=== PATIENT | female | born 1940 | race Caucasian/White ===

== ENCOUNTER 2022-10-11 11:50 | Inpatient (IN) ==
[2022-10-11 14:11] LABS: Basophils # (auto) 0.03 K/uL (0-0.2); Basophils % (auto) 0.5 %; Eosinophils # (auto) 0.13 K/uL (0-0.50); Eosinophils % (auto) 2.3 %; Hematocrit (blood only) 26.6 % (37.0-47.0); Hemoglobin 7.9 g/dl (12.0-16.0); Immature Granulocytes # (auto) 0.04 K/uL (0.01-0.20); Immature Granulocytes % (auto) 0.7 %; Lymphocytes # (auto) 1.77 K/uL (1.2-3.4); Lymphocytes % (auto) 31.7 %; Mean Corpuscular Hemoglobin 27.1 pg (25.0-34.0); Mean Corpuscular Hgb Conc 29.7 g/dL (32.0-36.0); Mean Corpuscular Volume 91.4 fL (80.0-100.0); Mean Platelet Volume 9.8 fL (9.4-12.4); Monocytes # (auto) 0.39 K/uL (0.11-0.59); Neutrophils # (auto) 3.23 K/uL (1.40-6.50); Neutrophils % (auto) 57.8 %; Platelet Count 249 K/uL (130-400); RDW Coefficient of Variation 15.5 % (11.5-14.5); RDW Standard Deviation 51.4 fL (36.4-46.3); Red Blood Count 2.91 M/uL (4.20-5.40); White Blood Count 5.59 K/ul (4.8-10.8)
[2022-10-11 14:18] LABS: INR 1.1 (0.9-1.1); Partial Thromboplastin Time 28.8 Seconds (21.0-31.0); Prothrombin Time 11.8 Seconds (9.0-12.0)
[2022-10-11 14:28] LABS: Anion Gap 5 (3-11); Blood Urea Nitrogen 33 mg/dl (6-23); Calcium 9.8 mg/dl (8.6-10.3); Carbon Dioxide 22 mmol/L (21-32); Chloride 111 mmol/L (98-107); Est GFR (Non-African American) 21.6 ml/min; Glucose 89 mg/dl (70-99(Fasting)); Sodium 138 mmol/L (136-145)
[2022-10-11 14:32] LABS: RBC Morphology Unremarkable
--- NOTE | 2022-10-11 15:05 | Emergency Department Note ---
History of Present Illness General Chief complaint: Hematuria Stated complaint: BLEEDING FROM CATHEDER, POST SURG. Time Seen by Provider: 10/11/22 12:16 History of Present Illness Provider complaint: Hematuria Onset (ago): week(s) 1 Maximum Pain Intensity: 3 82-year-old female on Xarelto presents emergency department for hematuria patient reports that she is a patient of Dr. Chavez urology. Patient reports that over the last week she has been having increasing hematuria and flank pain on the left. She reports no fevers. No nausea or vomiting. Patient is on Xarelto. Patient states she has been passing clots to her Crowell catheter. Home Medications Medication Instructions Recorded Confirmed Type L.acidophil-L.casei-B.bifid-B.longum-FOS 1 cap PO HS 05/27/22 10/11/22 History 2 billion cell-50 mg capsule (Probiotic Blend) albuterol sulfate 90 mcg/actuation 2 puff inhalation Q6H PRN Cough 05/27/22 10/11/22 History aerosol inhaler atenolol 50 mg tablet 50 mg PO QAM 05/27/22 10/11/22 History cholecalciferol (vitamin D3) 125 125 mcg PO QAM 05/27/22 10/11/22 History mcg (5,000 unit) tablet (Vitamin D3) cyanocobalamin (vitamin B-12) 1,000 mcg PO QAM 05/27/22 10/11/22 History 1,000 mcg tablet (Vitamin B-12) levothyroxine 88 mcg tablet 88 mcg PO QAM 05/27/22 10/11/22 History rivaroxaban 15 mg tablet (Xarelto) 15 mg PO QPM 05/27/22 10/11/22 History zolpidem 10 mg tablet (Ambien) 10 mg PO QPM 05/27/22 10/11/22 History acetaminophen 500 mg tablet 1,000 mg PO Q6H PRN Pain 07/15/22 10/11/22 History calcitriol 0.5 mcg capsule 0.5 mcg PO DAILY 09/16/22 10/11/22 History phenazopyridine 200 mg tablet 200 mg PO Q8H PRN pain #10 tabs 10/04/22 10/11/22 Rx (Pyridium) phenazopyridine 95 mg tablet 95 mg PO TID PRN pain 10/04/22 10/11/22 History tamsulosin 0.4 mg capsule 0.4 mg PO HS #30 caps 10/04/22 10/11/22 Rx Allergies Allergy/AdvReac Type Severity Reaction Status Date / Time Sulfa (Sulfonamide Allergy Mild Rash Verified 10/11/22 16:29 Antibiotics) Past Med/Surg History Medical History CKD (chronic kidney disease) Frequent UTI History of blood transfusion History of COVID-19 x3--last diagnosed 04/20/22 via HOME test-resolved History of DVT (deep vein thrombosis) happened just over 1 yr ago--after traveling to [place] (driving)--on xarelto daily History of kidney stones Hypertension Hypothyroidism Nephrolithiasis Obesity On anticoagulant therapy xarelto daily Rheumatoid arthritis methotrexate recently stopped taking Surgical History History of appendectomy History of arthroscopy of left knee History of bilateral cataract extraction History of carpal tunnel release of both wrists History of cholecystectomy History of colonoscopy History of cystoscopy 09/02/22 [facility] History of dilatation and curettage History of gastric bypass History of hysterectomy History of lithotripsy History of oophorectomy x2 History of thyroidectomy due to goiter History of tooth extraction History of total bilateral knee replacement (TKR) Nausea and vomiting after administration of anesthetic agent S/P cystoscopy with ureteral stent placement Family History Brother Bilateral kidney stones Other No family history of adverse response to anesthesia Social History Smoking Status: Never smoker Second Hand Exposure: No; Do You Dip or Chew Tobacco: No; Hx Alcohol Use: Yes Alcohol type: beer Hx Substance Use: No Preferred Language: Greek Communication Ability: Effective Visual Impairment: No Limitations Futures Trader Required: No Beliefs That Will Affect Care: None marital status: / Current Living Situation: Alone Current Living Situation Comment: lives in an apartment building "feels very safe" current occupational status: retired Feels Safe at Home: Yes Assistive Devices: Cane and Glasses Physical Exam Vital Signs Vital Signs - 24 hr 10/11/22 12:09 10/11/22 13:27 10/11/22 14:45 Temperature 36.5 C Temperature Source Temporal Artery Scan Pulse Rate 53 L 49 L Pulse Rate [Right Finger] 49 L Pulse Rhythm Regular Respiratory Rate 20 16 Respiratory Effort / Characteristics Non-Labored Non-Labored Respiratory Depth Normal Normal Blood Pressure 160/72 H Blood Pressure [Left Arm] 147/65 H Blood Pressure Mean 101 Blood Pressure Mean [Left Arm] 92 Pulse Oximetry 97 97 Oxygen Delivery Method Room Air Room Air Sepsis Recent Fever Within 48 Hours No Sepsis New/Unexplained Change in Mental Status No Sepsis Action Taken by Nursing No Action Required 10/11/22 14:45 10/11/22 16:00 10/11/22 17:52 Temperature Temperature Source Pulse Rate 68 53 L Pulse Rate [Right Finger] 50 L Pulse Rhythm Respiratory Rate 20 Respiratory Effort / Characteristics Non-Labored Respiratory Depth Normal Blood Pressure Blood Pressure [Left Arm] 152/65 H Blood Pressure Mean Blood Pressure Mean [Left Arm] 94 Pulse Oximetry 98 98 Oxygen Delivery Method Room Air Room Air Sepsis Recent Fever Within 48 Hours Sepsis New/Unexplained Change in Mental Status Sepsis Action Taken by Nursing 10/11/22 17:08 10/11/22 18:00 10/11/22 19:01 Temperature Temperature Source Pulse Rate Pulse Rate [Right Finger] 52 L 54 L 52 L Pulse Rhythm Respiratory Rate 20 20 20 Respiratory Effort / Characteristics Non-Labored Non-Labored Non-Labored Respiratory Depth Normal Normal Normal Blood Pressure Blood Pressure [Left Arm] 152/65 H 147/82 H 159/70 H Blood Pressure Mean Blood Pressure Mean [Left Arm] 94 103 99 Pulse Oximetry 97 97 96 Oxygen Delivery Method Room Air Room Air Room Air Sepsis Recent Fever Within 48 Hours Sepsis New/Unexplained Change in Mental Status Sepsis Action Taken by Nursing Physical Exam GENERAL: She is oriented to person, place, and time. She appears well-developed and well-nourished. She does not appear distressed. HENT: Exam performed. -Head: Normocephalic and atraumatic. -Right Ear: External ear normal. No mastoid erythema -Left Ear: External ear normal. No mastoid erythema -Mouth/Throat: The oropharynx is clear and moist. No trismus in the jaw. No dental abscesses or uvula swelling. No oropharyngeal exudate or tonsillar abscesses. EYES: Conjunctivae and EOM are normal.Right eye exhibits no discharge. Left eye exhibits no discharge. No scleral icterus. NECK: Normal range of motion. Neck supple. No JVD present. No tracheal deviation and normal range of motion present. CV: Normal rate, regular rhythm, normal heart sounds and intact distal pulses. There is no peripheral edema. Palpable radial pulses bue. PULM/CHEST: Effort normal and breath sounds normal. No respiratory distress. No stridor. She has no wheezes. She has no rales. -Chest Wall: She exhibits no tenderness. ABD: The abdomen is soft. Bowel sounds are normal. She has no distension. No mass is present. There is no tenderness. There is no rebound, no guarding, no Rivas's sign and no tenderness at McBurney's point. Rovsig negative MUSC/SKEL: Normal range of motion. There is no peripheral edema, tenderness or deformity. NEURO: Motor and sensation grossly intact. SKIN: Skin is warm and dry. She is not diaphoretic. PSYCH: She has a normal mood and affect. Behavior is normal. Judgment and thought content normal. Course Course 1216: The patient was evaluated in room C6. A complete history and physical exam was performed Cardiac monitoring: An order was placed for continuous cardiac monitoring. The monitor shows a rate of 70 with sinus rhythm interpreted by co 1256: Spoke with urology Norma Robert on-call with Dr. Chavez. She asked that a CT of the abdomen pelvis be ordered for the patient and they will come down to evaluate the patient. 1600: Received a message from Lisa Robert NP for Dr. Chavez who recommends admitting to medicine and to hold anticoagulants. [facility] [address] [facility] hospitalist team Dr. Hardwick will be made aware. Medical Decision Making Medical Records Attestation: I reviewed the patient's medical records. External medical records reviewed. Patient had a cystoscopy with stone basket extraction and placement of a left-sided catheter as well as a right ureter out nephroscopy with laser destruction of the stone and the laser ablation and a stent exchange done on October 04, 2022. Laboratory Data Attestation: I reviewed the patient's lab results. 10/11/22 13:15 10/11/22 13:15 Lab Results 10/11/22 10/11/22 10/11/22 Range/Units 13:15 13:15 13:15 WBC 5.59 (4.8-10.8) K/ul RBC 2.91 L (4.20-5.40) M/uL Hgb 7.9 L (12.0-16.0) g/dl Hct 26.6 L (37.0-47.0) % MCV 91.4 (80.0-100.0) fL MCH 27.1 (25.0-34.0) pg MCHC 29.7 L (32.0-36.0) g/dL RDW Std Deviation 51.4 H (36.4-46.3) fL RDW Coeff of Suzanna 15.5 H (11.5-14.5) % Plt Count 249 (130-400) K/uL MPV 9.8 (9.4-12.4) fL Immature Gran % (Auto) 0.7 % Neut % (Auto) 57.8 % Lymph % (Auto) 31.7 % Kingman % (Auto) 7.0 % Eos % (Auto) 2.3 % Baso % (Auto) 0.5 % Neut # (Auto) 3.23 (1.40-6.50) K/uL Lymph # (Auto) 1.77 (1.2-3.4) K/uL Kingman # (Auto) 0.39 (0.11-0.59) K/uL Eos # (Auto) 0.13 (0-0.50) K/uL Baso # (Auto) 0.03 (0-0.2) K/uL Immature Gran # (Auto) 0.04 (0.01-0.20) K/uL RBC Morphology Unremarkable PT 11.8 (9.0-12.0) Seconds INR 1.1 (0.9-1.1) APTT 28.8 (21.0-31.0) Seconds PTT Ratio 1.0 Sodium 138 (136-145) mmol/L Potassium 5.0 (3.5-5.1) mmol/L Chloride 111 H (98-107) mmol/L Carbon Dioxide 22 (21-32) mmol/L Anion Gap 5 (3-11) BUN 33 H (6-23) mg/dl Creatinine 2.06 H (0.6-1.2) mg/dl Est Cr Clr Drug Dosing Not Reportable Est GFR ( Amer) 25.0 ml/min Est GFR (Non-Af Amer) 21.6 ml/min BUN/Creatinine Ratio 16.0 (10-20) Glucose 89 (70-99(Fasting)) mg/dl Calcium 9.8 (8.6-10.3) mg/dl Imaging Data Radiologist's Impression: Abdomen/Pelvis CT 10/11/22 12:[address] WITHOUT CONTRAST CT DOSE: 1547.28 mGy.cm HISTORY: Acute hematuria heaturia TECHNIQUE: Multiaxial CT images of the abdomen and pelvis were performed without contrast. A dose lowering technique was utilized adhering to the principles of ALARA. COMPARISON STUDY: 09/16/2022 FINDINGS: Cardiomegaly with suggested anemia. The lung bases. No free air. The unenhanced spleen is unremarkable. Cholecystectomy. There are a few probable dropped stones again noted adjacent to the right hepatic lobe. The liver is within normal limits. Stable small bilateral adrenal gland nodules measuring up to 1.2 cm on the left. Unchanged 1.4 cm soft tissue attenuating focus with central calcification in the pancreas on image 86. No pancreatic ductal dilation. Cortical thinning with areas of parenchymal scarring within the bilateral kidneys. Atrophic right kidney. Bilateral perinephric stranding. Mild left-sided hydroureteronephrosis with satisfactory positioning of a left ureteral stent. No left-sided urolithiasis identified.r layering stone fragments in the right kidney measure up to 1.7 cm within the interpolar distribution. Additional stone fragments within the right renal pelvis and ureteropelvic junction are similar to prior. 3.9 cm cyst of the superior pole right kidney with adjacent calcification/hyperdensities along its medial margin. Right ureteral stent is in place. A cluster of tiny stone fragments are noted within the intrapelvic portion of the right ureter on image 187. Mild right-sided hydronephrosis. Decompressed urinary bladder with Crowell catheter. Hysterectomy. Atherosclerosis of the aorta without aneurysm. Tiny hiatal hernia. Postoperative changes of the stomach. Nonspecific circumferential wall thickening of the anorectal junction. Unremarkable soft tissues. No acute fracture. Unchanged left mid sacral sclerotic focus. IMPRESSION: 1. Satisfactory positioning of the ureteral stents with mild bilateral hydroureteronephrosis. 2. Numerous tiny stone fragments are again noted within the right renal pelvis and right kidney with additional tiny stone fragments present within the mid to distal right ureter. 3. No left-sided ureteral calculi are identified. 4. Additional findings as above. ACT 112: Negative or not required by law. The above report was generated using voice recognition software. It may contain grammatical, syntax or spelling errors. Electronically signed by: Jason Bills M.D. 10/11/2022 3:08 PM [facility] Narrative 1216: The patient was evaluated in room C6. A complete history and physical exam was performed Cardiac monitoring: An order was placed for continuous cardiac monitoring. The monitor shows a rate of 70 with sinus rhythm interpreted by co 1256: Spoke with urology Norma Robert on-call with Dr. Chavez. She asked that a CT of the abdomen pelvis be ordered for the patient and they will come down to evaluate the patient. 1600: Received a message from Lisa Robert NP for Dr. Chavez who recommends admitting to medicine and to hold anticoagulants. [facility] hospitalist team Dr. Hardwick will be made aware. Impression & Plan Hematuria Discharge Plan Visit Data Chief Complaint: Hematuria Stated Complaint: BLEEDING FROM CATHEDER, POST SURG. ED Provider: Rd Marte Discharge Problem: Hematuria Patient Disposition: Admitted As Inpatient Forms Stand Alone Forms: My [facility] Prescriptions Prescriptions: No Action calcitriol 0.5 mcg capsule 0.5 mcg PO DAILY phenazopyridine 95 mg Tablet 95 mg PO TID PRN (Reason: pain) phenazopyridine [Pyridium] 200 mg tablet 200 mg PO Q8H PRN (Reason: pain) Qty: 10 0RF tamsulosin 0.4 mg capsule 0.4 mg PO HS Qty: 30 0RF cyanocobalamin (vitamin B-12) [Vitamin B-12] 1,000 mcg Tablet 1,000 mcg PO QAM levothyroxine 88 mcg Tablet 88 mcg PO QAM zolpidem [Ambien] 10 mg Tablet 10 mg PO QPM atenolol 50 mg Tablet 50 mg PO QAM Xarelto 15 mg Tablet 15 mg PO QPM Rx Instructions: must administer with evening meal cholecalciferol (vitamin D3) [Vitamin D3] 125 mcg (5,000 unit) Tablet 125 mcg PO QAM Probiotic Blend 2 billion cell-50 mg Capsule 1 cap PO HS Rx Instructions: give with meal/snack albuterol sulfate 90 mcg/actuation Hfa Aerosol Inhaler 2 puff INHALATION Q6H PRN (Reason: Cough) acetaminophen 500 mg Tablet 1,000 mg PO Q6H PRN (Reason: Pain) Referrals Referrals: Luly Smith PA-C [Primary Care Provider] -
--- NOTE | 2022-10-11 15:10 | CT Scan Report ---
ABDOMEN AND PELVIS CT WITHOUT CONTRAST CT DOSE: 1547.28 mGy.cm HISTORY: Acute hematuria heaturia TECHNIQUE: Multiaxial CT images of the abdomen and pelvis were performed without contrast. A dose lo wering technique was utilized adhering to the principles of ALARA. COMPARISON STUDY: 09/16/2022 FINDINGS: Cardiomegaly with suggested anemia. The lung bases. No free air. The unenhanced spleen is u nremarkable. Cholecystectomy. There are a few probable dropped stones again noted adjacent to the rig ht hepatic lobe. The liver is within normal limits. Stable small bilateral adrenal gland nodules kirby uring up to 1.2 cm on the left. Unchanged 1.4 cm soft tissue attenuating focus with central calcifica tion in the pancreas on image 86. No pancreatic ductal dilation. Cortical thinning with areas of parenchymal scarring within the bilateral kidneys. Atrophic right kid kisha. Bilateral perinephric stranding. Mild left-sided hydroureteronephrosis with satisfactory positio samaria of a left ureteral stent. No left-sided urolithiasis identified.r layering stone fragments in th e right kidney measure up to 1.7 cm within the interpolar distribution. Additional stone fragments wi thin the right renal pelvis and ureteropelvic junction are similar to prior. 3.9 cm cyst of the super ior pole right kidney with adjacent calcification/hyperdensities along its medial margin. Right urete ral stent is in place. A cluster of tiny stone fragments are noted within the intrapelvic portion of the right ureter on image 187. Mild right-sided hydronephrosis. Decompressed urinary bladder with Fol ey catheter. Hysterectomy. Atherosclerosis of the aorta without aneurysm. Tiny hiatal hernia. Postoperative changes of the stoma ch. Nonspecific circumferential wall thickening of the anorectal junction. Unremarkable soft tissues. No acute fracture. Unchanged left mid sacral sclerotic focus. IMPRESSION: 1. Satisfactory positioning of the ureteral stents with mild bilateral hydroureteronephrosis. 2. Numerous tiny stone fragments are again noted within the right renal pelvis and right kidney with additional tiny stone fragments present within the mid to distal right ureter. 3. No left-sided ureteral calculi are identified. 4. Additional findings as above. ACT 112: Negative or not required by law. The above report was generated using voice recognition software. It may contain grammatical, syntax o r spelling errors. Electronically signed by: Jason Bills M.D. 10/11/2022 3:08 PM
--- NOTE | 2022-10-11 15:26 | Urology Consultation ---
Date of Consultation October 11, 2022 Assessment & Plan (1) Hematuria: (2) S/P cystoscopy with ureteral stent placement: Plan 82yo/F who is s/p recent urological procedure admitted with gross hematuria. - Afebrile, hemodynamically stable. - Labs reviewed - WBC 5.59, Hemoglobin 7.9, Creatinine 2.06. - UA/culture to be collected. - Crowell intact, draining dark red urine. - CT abd pelvis reviewed - B/L stents in appropriate position with mild bilateral hydroureteronephrosis. - No plan for intervention. - Hematuria in the setting of bilateral ureteral stents and anticoagulation. - Would recommend holding anticoagulation for now if able. - Maintain Crowell catheter and continue to monitor. - Ok to hand irrigate catheter as needed for clots, retention, suprapubic pain. - Continue supportive care - Continue to trend labs. - Urology will follow Case discussed with Dr. Chavez. History of Present Illness History of Present Illness 82 year old female with a hx of large bilateral nephrolithiasis, hematuria, frequent UTI and atrophic right kidney who presented to the ED today with complaints of gross hematuria. She is s/p cystoscopy, bilateral retrograde pyelogram, left ureteroscopy, stone treatment, stent placement, and right ureteroscopy, stone treatment, stent placement on 10/04/[address] Chavez. She was seen in the ED at an outlying facility yesterday for similar complaints. Patient reports her urine was initially clear following her procedure and she did not experience hematuria until last Tuesday. She reports voiding with passage of clots which prompted her arrival to the ED in [place]. She had a Crowell catheter placed there which they irrigated with several liters of fluid. She is on Xarelto. In the ED, she was afebrile, hypertensive. Labs showing no leukocytosis, hemoglobin 7.9, creatinine 2.06 (which is around her baseline). CT abd pelvis - 1. Satisfactory positioning of the ureteral stents with mild bilateral hydroureteronephrosis. 2. Numerous tiny stone fragments are again noted within the right renal pelvis and right kidney with additional tiny stone fragments present within the mid to distal right ureter. 3. No left-sided ureteral calculi are identified. Pt examined at bedside in the ED. Awake, resting in bed on arrival. No acute distress. Son at bedside. Crowell catheter intact, draining dark red urine. No clots visualized at time of exam. She denies abdominal, flank, suprapubic pain at present. Reports some mild discomfort at catheter insertion site. Denies fevers, chills, nausea, vomiting. She reports feeling weak over the past few da ys. States she typically has some hematuria with the stents, but nothing like this. Allergies Allergy/AdvReac Type Severity Reaction Status Date / Time Sulfa (Sulfonamide Allergy Mild Rash Verified 10/11/22 16:29 Antibiotics) Home Medications Medication Instructions Recorded Confirmed Type L.acidophil-L.casei-B.bifid-B.longum-FOS 1 cap PO HS 05/27/22 10/11/22 History 2 billion cell-50 mg capsule (Probiotic Blend) albuterol sulfate 90 mcg/actuation 2 puff inhalation Q6H PRN Cough 05/27/22 10/11/22 History aerosol inhaler atenolol 50 mg tablet 50 mg PO QAM 05/27/22 10/11/22 History cholecalciferol (vitamin D3) 125 125 mcg PO QAM 05/27/22 10/11/22 History mcg (5,000 unit) tablet (Vitamin D3) cyanocobalamin (vitamin B-12) 1,000 mcg PO QAM 05/27/22 10/11/22 History 1,000 mcg tablet (Vitamin B-12) levothyroxine 88 mcg tablet 88 mcg PO QAM 05/27/22 10/11/22 History rivaroxaban 15 mg tablet (Xarelto) 15 mg PO QPM 05/27/22 10/11/22 History zolpidem 10 mg tablet (Ambien) 10 mg PO QPM 05/27/22 10/11/22 History acetaminophen 500 mg tablet 1,000 mg PO Q6H PRN Pain 07/15/22 10/11/22 History calcitriol 0.5 mcg capsule 0.5 mcg PO DAILY 09/16/22 10/11/22 History phenazopyridine 200 mg tablet 200 mg PO Q8H PRN pain #10 tabs 10/04/22 10/11/22 Rx (Pyridium) phenazopyridine 95 mg tablet 95 mg PO TID PRN pain 10/04/22 10/11/22 History tamsulosin 0.4 mg capsule 0.4 mg PO HS #30 caps 10/04/22 10/11/22 Rx Patient History Medical History CKD (chronic kidney disease) Frequent UTI History of blood transfusion History of COVID-19 x3--last diagnosed 04/20/22 via HOME test-resolved History of DVT (deep vein thrombosis) happened just over 1 yr ago--after traveling to [place] (driving)--on xarelto daily History of kidney stones Hypertension Hypothyroidism Nephrolithiasis Obesity On anticoagulant therapy xarelto daily Rheumatoid arthritis methotrexate recently stopped taking Surgical History History of appendectomy History of arthroscopy of left knee History of bilateral cataract extraction History of carpal tunnel release of both wrists History of cholecystectomy History of colonoscopy History of cystoscopy 09/02/22 [facility] History of dilatation and curettage History of gastric bypass History of hysterectomy History of lithotripsy History of oophorectomy x2 History of thyroidectomy due to goiter History of tooth extraction History of total bilateral knee replacement (TKR) Nausea and vomiting after administration of anesthetic agent S/P cystoscopy with ureteral stent placement Family History Brother Bilateral kidney stones Other No family history of adverse response to anesthesia Social History Smoking Status: Never smoker Second Hand Exposure: No; Do You Dip or Chew Tobacco: No; Hx Alcohol Use: Yes Alcohol type: beer Hx Substance Use: No Preferred Language: Korean Communication Ability: Effective Visual Impairment: No 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 Beliefs That Will Affect Care: None marital status: / Current Living Situation: Alone Current Living Situation Comment: lives in an apartment building "feels very safe" current occupational status: retired Feels Safe at Home: Yes Safety Concerns: Feels Safe At This Time Assistive Devices: Cane and Glasses Review of Systems Review of Systems: All systems reviewed & are unremarkable except as noted in HPI & below Physical Exam Constitutional: well developed and well nourished; no acute distress Respiratory: normal respiratory effort; no respiratory distress and no labored breathing Musculoskeletal: Head/Neck/Chest: normocephalic Skin: No visible rashes or lesions to exposed skin areas Neurologic: moves all extremities and awake Psychiatric: A+Ox3, euthymic affect Genitourinary: Crowell catheter intact, draining dark red urine Results & Data Vital Signs (Past 12 Hours) Vital Signs Temp Pulse Pulse Resp BP BP Pulse Ox 10/11/22 14:45 68 98 10/11/22 14:45 49 L 16 147/65 H 97 10/11/22 13:27 49 L 10/11/22 12:09 36.5 C 53 L 20 160/72 H 97 O2 Del Method 10/11/22 14:45 Room Air 10/11/22 14:45 Room Air 10/11/22 13:27 10/11/22 12:09 Room Air PG Care Time/CCT Total # of Minutes Spent Total Time Spent with Patient: Total time spent is greater than 50% in coordination of care (as documented) at patient's floor/unit and/or counseling patient: Coding Level of Care Code 93815 INT INP/OBS CARE 2/55MIN Diagnoses Hematuria R31.9 S/P cystoscopy with ureteral stent placement Z96.0
--- NOTE | 2022-10-11 16:32 | History & Physical Report ---
Date of Service October 11, 2022 Assessment & Plan (1) Hematuria: Plan: Secondary to ureteral stent placement with Xarelto Consult urology - appreciate recommendations Repeat CBC in AM, Hgb not far off her baseline of 9 No immediate need to go back on Xarelto and likely over anticoagulated on this irregardless given her renal function (2) CKD (chronic kidney disease): Plan: At baseline. Continue to monitor. (3) Hypertension: Plan: Continue atenolol with hold parameters (reduced to HR 50) however given her HR and renal function discussed with patient to consider alternatives with her PCP (4) Hypothyroidism: Plan: Continue levothyroxine Plan VTE Prophylaxis - chemical contraindicated Diet - regular Disposition - admit to med/surg Admission and Anticipated Discharge Date Admission Date: October 11, 2022 History of Present Illness Chief Complaint: Hematuria Primary Care Provider: Luly Smith PA-C Rossy French is an 82 year old female who presents to the ER with gross hematuria from her borjas catheter and passing clots. She underwent bilateral ureteral stent placement on 10/04 for nephrolithiasis. She was doing ok until 10/08 when she started having hematuria. She was off Xarelto for 2 days prior to surgery and placed back on it the day after surgery. Had previous hematuria but nothing like this. She went to [facility] ER last night and borjas catheter was placed and she was discharged from the ER with advice to come here were her urologist is if it continues. Last dose of Xarelto was yesterday morning. With regards to the anemia PCP notes she usually runs around 9. She denies any worsening dizziness over the last week, no chest pain or shortness of breath. She is fatigued but also notes she did not sleep last night due to being in the ER. Urology saw the patient in the ER and recommended hand irrigation of the borjas as needed and admit patient to medicine service. Allergies Allergy/AdvReac Type Severity Reaction Status Date / Time Sulfa (Sulfonamide Allergy Mild Rash Verified 10/11/22 16:29 Antibiotics) Home Medications Medication Instructions Recorded Confirmed Type L.acidophil-L.casei-B.bifid-B.longum-FOS 1 cap PO HS 05/27/22 10/11/22 History 2 billion cell-50 mg capsule (Probiotic Blend) albuterol sulfate 90 mcg/actuation 2 puff inhalation Q6H PRN Cough 05/27/22 10/11/22 History aerosol inhaler atenolol 50 mg tablet 50 mg PO QAM 05/27/22 10/11/22 History cholecalciferol (vitamin D3) 125 125 mcg PO QAM 05/27/22 10/11/22 History mcg (5,000 unit) tablet (Vitamin D3) cyanocobalamin (vitamin B-12) 1,000 mcg PO QAM 05/27/22 10/11/22 History 1,000 mcg tablet (Vitamin B-12) levothyroxine 88 mcg tablet 88 mcg PO QAM 05/27/22 10/11/22 History rivaroxaban 15 mg tablet (Xarelto) 15 mg PO QPM 05/27/22 10/11/22 History zolpidem 10 mg tablet (Ambien) 10 mg PO QPM 05/27/22 10/11/22 History acetaminophen 500 mg tablet 1,000 mg PO Q6H PRN Pain 07/15/22 10/11/22 History calcitriol 0.5 mcg capsule 0.5 mcg PO DAILY 09/16/22 10/11/22 History phenazopyridine 200 mg tablet 200 mg PO Q8H PRN pain #10 tabs 10/04/22 10/11/22 Rx (Pyridium) phenazopyridine 95 mg tablet 95 mg PO TID PRN pain 10/04/22 10/11/22 History tamsulosin 0.4 mg capsule 0.4 mg PO HS #30 caps 10/04/22 10/11/22 Rx Past Med/Surg History Medical History CKD (chronic kidney disease) Frequent UTI History of blood transfusion History of COVID-19 x3--last diagnosed 04/20/22 via HOME test-resolved History of DVT (deep vein thrombosis) happened just over 1 yr ago--after traveling to [place] (driving)--on xarelto daily History of kidney stones Hypertension Hypothyroidism Nephrolithiasis Obesity On anticoagulant therapy xarelto daily Rheumatoid arthritis methotrexate recently stopped taking Surgical History History of appendectomy History of arthroscopy of left knee History of bilateral cataract extraction History of carpal tunnel release of both wrists History of cholecystectomy History of colonoscopy History of cystoscopy 09/02/22 [facility] History of dilatation and curettage History of gastric bypass History of hysterectomy History of lithotripsy History of oophorectomy x2 History of thyroidectomy due to goiter History of tooth extraction History of total bilateral knee replacement (TKR) Nausea and vomiting after administration of anesthetic agent S/P cystoscopy with ureteral stent placement Family History Brother Bilateral kidney stones Other No family history of adverse response to anesthesia Social History Smoking Status: Never smoker Second Hand Exposure: No; Do You Dip or Chew Tobacco: No; Hx Alcohol Use: Yes Alcohol type: beer Hx Substance Use: No Preferred Language: Khmer Communication Ability: Effective Visual Impairment: No Limitations Director Of Dietary Required: No Beliefs That Will Affect Care: None marital status: / Current Living Situation: Alone Current Living Situation Comment: lives in an apartment building "feels very safe" current occupational status: retired Feels Safe at Home: Yes Safety Concerns: Feels Safe At This Time Assistive Devices: Cane and Glasses Review of Systems Review of Systems: All systems reviewed & are unremarkable except as noted in HPI & below Physical Exam Constitutional: WD/WN, vitals as above Respiratory: normal respiratory effort, lungs clear to auscultation Cardiovascular: RRR, no murmur, no edema Gastrointestinal (Abdomen): normal bowel sounds, soft, nontender, no hepatosplenomegaly Musculoskeletal: no cyanosis or clubbing, extremities motor strength 5/5 Skin: no rashes, warm and dry Neurologic: moves all extremities and awake; not confused Psychiatric: A+Ox3, euthymic affect Genitourinary: no CVA tenderness Results & Data Results & Data Vital Signs (Past 12 Hours) Vital Signs Temp Pulse Pulse Resp BP BP Pulse Ox 10/11/22 16:00 50 L 20 152/65 H 98 10/11/22 14:45 68 98 10/11/22 14:45 49 L 16 147/65 H 97 10/11/22 13:27 49 L 10/11/22 12:09 36.5 C 53 L 20 160/72 H 97 O2 Del Method 10/11/22 16:00 Room Air 08/21/23 14:45 Room Air 10/11/22 14:45 Room Air 10/11/22 13:27 10/11/22 12:09 Room Air Laboratory Results Abnormal lab results 10/11/22 10/11/22 Range/Units 13:15 13:15 RBC 2.91 L (4.20-5.40) M/uL Hgb 7.9 L (12.0-16.0) g/dl Hct 26.6 L (37.0-47.0) % MCHC 29.7 L (32.0-36.0) g/dL RDW Std Deviation 51.4 H (36.4-46.3) fL RDW Coeff of Suzanna 15.5 H (11.5-14.5) % Chloride 111 H (98-107) mmol/L BUN 33 H (6-23) mg/dl Creatinine 2.06 H (0.6-1.2) mg/dl Diagnostic Findings ABDOMEN AND PELVIS CT WITHOUT CONTRAST CT DOSE: 1547.28 mGy.cm HISTORY: Acute hematuria hematuria TECHNIQUE: Multiaxial CT images of the abdomen and pelvis were performed without contrast. A dose lowering technique was utilized adhering to the principles of ALARA. COMPARISON STUDY: 09/16/2022 FINDINGS: Cardiomegaly with suggested anemia. The lung bases. No free air. The unenhanced spleen is unremarkable. Cholecystectomy. There are a few probable dropped stones again noted adjacent to the right hepatic lobe. The liver is within normal limits. Stable small bilateral adrenal gland nodules measuring up to 1.2 cm on the left. Unchanged 1.4 cm soft tissue attenuating focus with central calcification in the pancreas on image 86. No pancreatic ductal dilation. Cortical thinning with areas of parenchymal scarring within the bilateral kidneys. Atrophic right kidney. Bilateral perinephric stranding. Mild left-sided hydroureteronephrosis with satisfactory positioning of a left ureteral stent. No left-sided urolithiasis identified.r layering stone fragments in the right kidney measure up to 1.7 cm within the interpolar distribution. Additional stone fragments within the right renal pelvis and ureteropelvic junction are similar to prior. 3.9 cm cyst of the superior pole right kidney with adjacent calcification/hyperdensities along its medial margin. Right ureteral stent is in place. A cluster of tiny stone fragments are noted within the intrapelvic portion of the right ureter on image 187. Mild right-sided hydronephrosis. Decompressed urinary bladder with Borjas catheter. Hysterectomy. Atherosclerosis of the aorta without aneurysm. Tiny hiatal hernia. Postoperative changes of the stomach. Nonspecific circumferential wall thickening of the anorectal junction. Unremarkable soft tissues. No acute fracture. Unchanged left mid sacral sclerotic focus. IMPRESSION: 1. Satisfactory positioning of the ureteral stents with mild bilateral hydroureteronephrosis. 2. Numerous tiny stone fragments are again noted within the right renal pelvis and right kidney with additional tiny stone fragments present within the mid to distal right ureter. 3. No left-sided ureteral calculi are identified. 4. Additional findings as above. Medications Administered ER Medications Given: None Code Status & VTE Plan Code Status Full VTE Prophylaxis Plan VTE Prophylaxis will be ordered: No PG Care Time/CCT Total # of Minutes Spent Total Time Spent with Patient: Total time spent is greater than 50% in coordination of care (as documented) at patient's floor/unit and/or counseling patient: Coding Level of Care Code 16384 INT INP/OBS CARE 2/55MIN Diagnoses Hematuria R31.9 CKD (chronic kidney disease) N18.9 Hypertension I10 Hypothyroidism E03.9
[2022-10-11] MEDS: TAMSULOSIN HCL 0.4 MG CAP PO SCH (21:10)
[2022-10-11] MEDS: ACETAMINOPHEN 500 MG TAB PO PRN (21:12)
[2022-10-11] MEDS: ZOLPIDEM TARTRATE 10 MG TAB PO SCH (22:31)
[2022-10-12] MEDS: LEVOTHYROXINE SODIUM 88 MCG TABLET PO SCH (05:27)
[2022-10-12] MEDS: ACETAMINOPHEN 500 MG TAB PO PRN (05:41)
[2022-10-12 06:32] LABS: Appearance Urine Slightly Cloudy (Clear); Color Urine Brown
[2022-10-12 06:42] LABS: Epithelial Cell Urine 0-5 /lpf (0-5); RBC Urine >30 /hpf (0-4)
[2022-10-12 06:43] LABS: Bacteria Urine 1+ (Negative)
[2022-10-12 06:45] LABS: Hematocrit (blood only) 23.4 % (37.0-47.0); Hemoglobin 7.2 g/dl (12.0-16.0); Mean Corpuscular Hemoglobin 27.9 pg (25.0-34.0); Mean Corpuscular Hgb Conc 30.8 g/dL (32.0-36.0); Mean Corpuscular Volume 90.7 fL (80.0-100.0); Mean Platelet Volume 9.7 fL (9.4-12.4); Platelet Count 232 K/uL (130-400); RDW Coefficient of Variation 15.4 % (11.5-14.5); RDW Standard Deviation 50.4 fL (36.4-46.3); Red Blood Count 2.58 M/uL (4.20-5.40); White Blood Count 5.89 K/ul (4.8-10.8)
[2022-10-12 07:10] LABS: BUN Creatinine Ratio 15.6 (10-20); Calcium 9.2 mg/dl (8.6-10.3); Creatinine Clr Calc Pharmacy 22.7 ml/min; Est GFR (African American) 24.2 ml/min; Est GFR (Non-African American) 20.8 ml/min
[2022-10-12] MEDS ORDERED: SODIUM CHLORIDE 0.9% 250 ML IV PRN (07:59)
[2022-10-12] MEDS: ATENOLOL 50 MG TABLET PO SCH (08:07)
--- NOTE | 2022-10-12 09:56 | Urology Progress Note ---
Date of Service October 12, 2022 Assessment & Plan (1) Hematuria: (2) S/P cystoscopy with ureteral stent placement: Plan 82yo/F who is s/p recent urological procedure admitted with gross hematuria. CT abdomen pelvis on arrival demonstrated bilateral ureteral stents in appropriate position with mild bilateral hydroureteronephrosis. - Hematuria in the setting of bilateral ureteral stents and anticoagulation. - Afebrile, hemodynamically stable. - Labs reviewed - WBC 5.89, creatinine 2.12, hemoglobin 7.97.2 today. Patient to receive PRBC transfusion this morning. - Urine culture pending. - Crowell intact, draining light pink/red urine. Improved from yesterday. Continue to monitor. - Ok to hand irrigate catheter as needed for clots, retention, suprapubic pain. - Continue supportive care - Continue to trend labs. - Anticoagulation on hold. - Urology will follow Admission and Anticipated Discharge Date Admission Date: October 11, 2022 Subjective Patient examined at bedside this AM. Awake, resting in bed on arrival. No acute distress. Crowell draining light pink/red urine, no clots. She did require manual irrigation x2 overnight. Denies abdominal, flank, suprapubic pain. Denies fevers, chills, nausea, vomiting. Patient to receive PRBC transfusion this morning. Review of Systems Constitutional: as per Subjective / HPI Gastrointestinal: as per Subjective / HPI Genitourinary: as per Subjective / HPI Physical Exam Constitutional: no acute distress Respiratory: no respiratory distress and no labored breathing Skin: No visible rashes or lesions to exposed skin areas Neurologic: moves all extremities and awake Psychiatric: A+Ox3, euthymic affect Genitourinary: Crowell intact, draining light pink/red urine without clot Results & Data Vital Signs (Past 12 Hours) Vital Signs Temp Pulse Resp BP Pulse Ox O2 Del Method 10/12/22 07:07 36.5 C 54 L 16 137/72 96 Room Air 10/12/22 05:28 37.0 C 61 17 133/68 95 Room Air 10/11/22 23:13 37 C 56 L 20 121/68 94 Room Air 10/11/22 22:32 56 L 17 124/54 L 97 Room Air PG Care Time/CCT Total # of Minutes Spent Total Time Spent with Patient: Total time spent is greater than 50% in coordination of care (as documented) at patient's floor/unit and/or counseling patient: Coding Level of Care Code 45034 SUB INP/OBS CARE 2/35MIN Diagnoses Hematuria R31.9 S/P cystoscopy with ureteral stent placement Z96.0
[2022-10-12] MEDS: PHENAZOPYRIDINE HCL 200 MG TAB PO PRN (16:28)
--- NOTE | 2022-10-12 16:44 | Hospitalist Progress Note ---
Date of Service October 12, 2022 Assessment & Plan (1) Hematuria: Plan: Secondary to recent bilateral ureteral stent placement with Xarelto. Urology consultation appreciated. Xarelto has been discontinued. (2) Acute blood loss anemia: Plan: Hemoglobin is down to 7.2. 2 units packed red blood cells ordered with serial labs. (3) CKD (chronic kidney disease): Plan: Stage III4. Creatinine stable at 2.1. Monitor intake and output. Serial labs (4) Hypertension: Plan: Stable. Continue atenolol (5) Hypothyroidism: Plan: Stable. Continue levothyroxine Plan Hopeful discharge back to home soon Admission and Anticipated Discharge Date Admission Date: October 11, 2022 Subjective Alert and oriented. Hemoglobin is down to 7.2. 2 units packed red blood cells ordered. The patient has given consent. Son is at the bedside. Xarelto is on hold. Urine is clearing. Appreciate urology consultation and recommendations. Review of Systems Review of Systems: Constitutional-no fever or chills ENT-no blurred vision, no double vision, no epistaxis, no sore throat Respiratory-no cough, no wheezing, no shortness of breath Cardiac-no palpitations, no chest pain, no syncope GI-no nausea, vomiting, diarrhea, melena, hematochezia -gross hematuria present on admission Musculoskeletal-no joint pain, no muscle tenderness Skin-no bruising, no rashes, no pruritus Neuro-no isolated weakness, no paresthesia, no weakness Psych-no depression, no anxiety Physical Exam Physical Exam: General-alert and oriented x3, no fevers, no chills HEENT-head atraumatic and normocephalic, pupils equal and reactive to light, extraocular muscles intact Neck-no lymphadenopathy or thyromegaly, trachea midline Chest-clear to auscultation percussion. No rales, wheezing or rhonchi Cardiac-regular rate and rhythm, normal S1 and S2 Abdomen-normal bowel sounds, nontender, no hepatosplenomegaly GUFoley catheter in place with near resolution of hematuria Extremities-no cyanosis, clubbing, or edema Neuro-cranial nerves II through XII intact, motor and sensory function within normal limits, strength symmetrical , no focal deficits Psych-normal affect, normal mood Results & Data Results & Data Vital Signs (Past 12 Hours) Vital Signs Temp Pulse Pulse Resp BP BP Pulse Ox 10/12/22 16:00 36.5 C 51 L 16 120/69 92 10/12/22 14:00 36.9 C 52 L 16 149/72 H 98 10/12/22 14:00 36.9 C 56 L 16 123/74 95 10/12/22 13:28 36.9 C 56 L 16 122/73 95 10/12/22 13:15 36.8 C 60 20 123/68 98 10/12/22 12:55 36.9 C 58 L 20 122/56 L 95 10/12/22 07:07 36.5 C 54 L 16 137/72 96 10/12/22 05:28 37.0 C 61 17 133/68 95 O2 Del Method O2 Flow Rate 10/12/22 16:00 10/12/22 14:00 10/12/22 14:00 10/12/22 13:28 10/12/22 13:15 0 10/12/22 12:55 0 10/12/22 07:07 Room Air 10/12/22 05:28 Room Air Laboratory Results 10/12/22 06:19 10/12/22 06:19 PG Care Time/CCT Total # of Minutes Spent Total Time Spent with Patient: Total time spent is greater than 50% in coordination of care (as documented) at patient's floor/unit and/or counseling patient: Coding Level of Care Code 79199 SUB INP/OBS CARE 3/50MIN Diagnoses Hematuria R31.9 Acute blood loss anemia D62 CKD (chronic kidney disease) N18.9 Hypertension I10 Hypothyroidism E03.9
[2022-10-12] MEDS: TAMSULOSIN HCL 0.4 MG CAP PO SCH (22:49)
[2022-10-12] MEDS: ZOLPIDEM TARTRATE 10 MG TAB PO SCH (22:49)
[2022-10-12 22:51] LABS: Hematocrit (blood only) 29.5 % (37.0-47.0); Hemoglobin 9.2 g/dl (12.0-16.0)
[2022-10-13] MEDS: ACETAMINOPHEN 500 MG TAB PO PRN ×3 (05:05→21:52)
[2022-10-13] MEDS: LEVOTHYROXINE SODIUM 88 MCG TABLET PO SCH (06:15)
[2022-10-13 06:52] LABS: Hematocrit (blood only) 27.4 % (37.0-47.0); Hemoglobin 8.6 g/dl (12.0-16.0); Mean Corpuscular Hemoglobin 27.6 pg (25.0-34.0); Mean Corpuscular Hgb Conc 31.4 g/dL (32.0-36.0); Mean Corpuscular Volume 87.8 fL (80.0-100.0); Mean Platelet Volume 9.6 fL (9.4-12.4); Platelet Count 218 K/uL (130-400); RDW Coefficient of Variation 16.1 % (11.5-14.5); RDW Standard Deviation 51.8 fL (36.4-46.3); Red Blood Count 3.12 M/uL (4.20-5.40); White Blood Count 6.45 K/ul (4.8-10.8)
[2022-10-13 07:17] LABS: BUN Creatinine Ratio 16.6 (10-20); Creatinine Clr Calc Pharmacy 21.1 ml/min; Potassium 4.4 mmol/L (3.5-5.1)
[2022-10-13] MEDS: ATENOLOL 50 MG TABLET PO SCH (08:01)
[2022-10-13] MEDS: DOCUSATE SODIUM 100 MG CAP PO SCH ×2 (10:08→21:53)
--- NOTE | 2022-10-13 10:12 | Urology Progress Note ---
Date of Service October 13, 2022 Assessment & Plan (1) Hematuria: (2) S/P cystoscopy with ureteral stent placement: Plan 82yo/F who is s/p recent urological procedure admitted with gross hematuria. CT abdomen pelvis on arrival demonstrated bilateral ureteral stents in appropriate position with mild bilateral hydroureteronephrosis. - Afebrile, hemodynamically stable. - Labs reviewed - WBC 6.45, creatinine 2.12-2.29 today, hemoglobin 7.2 -9.2 -8.6 today. Patient received PRBC transfusion yesterday. Continue to trend. - Urine culture pending. - Hematuria has cleared. Borjas draining orange colored urine without clot or debris. Continue to monitor. - Ok to hand irrigate catheter as needed for clots, retention, suprapubic pain. - Plan to maintain borjas catheter on discharge. Will remove next week in office. - Continue supportive care and follow culture. - Anticoagulation on hold. OK to resume from standpoint. - Plan to follow-up with urology outpatient next week (10/19) for stent and catheter removal. - Urology will follow peripherally. Please contact us with any further questions, concerns, or changes in patient status. Admission and Anticipated Discharge Date Admission Date: October 11, 2022 Subjective Patient examined at bedside this AM. Awake, sitting in bedside chair on arrival. No acute distress. Son at bedside. Borjas draining orange colored urine, no clots or debris noted. She did require manual irrigation x2 overnight. Denies abdominal, flank, suprapubic pain at present. Denies fevers, chills, nausea, vomiting. Review of Systems Constitutional: as per Subjective / HPI Gastrointestinal: as per Subjective / HPI Genitourinary: as per Subjective / HPI Physical Exam Constitutional: well developed and well nourished; no acute distress Respiratory: normal respiratory effort; no respiratory distress and no labored breathing Musculoskeletal: Head/Neck/Chest: normocephalic Neurologic: moves all extremities and awake Psychiatric: A+Ox3, euthymic affect Results & Data Vital Signs (Past 12 Hours) Vital Signs Temp Pulse Resp BP Pulse Ox O2 Del Method 10/13/22 06:54 36.8 C 51 L 16 105/60 94 Room Air PG Care Time/CCT Total # of Minutes Spent Total Time Spent with Patient: Total time spent is greater than 50% in coordination of care (as documented) at patient's floor/unit and/or counseling patient: Coding Level of Care Code 99599 SUB INP/OBS CARE 2/35MIN Diagnoses Hematuria R31.9 S/P cystoscopy with ureteral stent placement Z96.0
--- NOTE | 2022-10-13 12:54 | Hospitalist Progress Note ---
Date of Service October 13, 2022 Assessment & Plan (1) Hematuria: Plan: Secondary to recent bilateral ureteral stent placement with Xarelto. Urology consultation appreciated. Xarelto has been discontinued. (2) Acute blood loss anemia: Plan: Hemoglobin improved after blood transfusion yesterday, October 12. Hemoglobin high level was 9.2 and now 8.6. We will continue to follow. Hematuria has r esolved however. She is now off Xarelto. (3) CKD (chronic kidney disease): Plan: Stage III4. Creatinine up slightly to 2.2. Monitor intake and output. Serial labs (4) Hypertension: Plan: Stable. Continue atenolol (5) Hypothyroidism: Plan: Stable. Continue levothyroxine Plan We will discharge to home tomorrow, October 14. Will ask urology if Crowell should remain in place at the time of discharge Admission and Anticipated Discharge Date Admission Date: October 11, 2022 Subjective Alert and oriented. Son is at the bedside. Hemoglobin improved to 9.2 after 2 units packed red blood cells and 8.6 this morning. Creatinine up slightly to 2.2. Will restart Xarelto tomorrow, October 14. Will ask urology if Crowell should remain in place at the time of discharge and be removed as an outpatient in the office. Review of Systems Review of Systems: Constitutional-no fever or chills ENT-no blurred vision, no double vision, no epistaxis, no sore throat Respiratory-no cough, no wheezing, no shortness of breath Cardiac-no palpitations, no chest pain, no syncope GI-no nausea, vomiting, diarrhea, melena, hematochezia -gross hematuria present on admission Musculoskeletal-no joint pain, no muscle tenderness GUFoley catheter in place. Gross hematuria has resolved Skin-no bruising, no rashes, no pruritus Neuro-no isolated weakness, no paresthesia, no weakness Psych-no depression, no anxiety Physical Exam Physical Exam: General-alert and oriented x3, no fevers, no chills HEENT-head atraumatic and normocephalic, pupils equal and reactive to light, extraocular muscles intact Neck-no lymphadenopathy or thyromegaly, trachea midline Chest-clear to auscultation percussion. No rales, wheezing or rhonchi Cardiac-regular rate and rhythm, normal S1 and S2 Abdomen-normal bowel sounds, nontender, no hepatosplenomegaly GUFoley catheter in place with resolution of hematuria Extremities-no cyanosis, clubbing, or edema Neuro-cranial nerves II through XII intact, motor and sensory function within normal limits, strength symmetrical , no focal deficits Psych-normal affect, normal mood Results & Data Results & Data Vital Signs (Past 12 Hours) Vital Signs Temp Pulse Resp BP Pulse Ox O2 Del Method 10/13/22 06:54 36.8 C 51 L 16 105/60 94 Room Air Laboratory Results 10/13/22 06:31 10/13/22 06:31 PG Care Time/CCT Total # of Minutes Spent Total Time Spent with Patient: Total time spent is greater than 50% in coordination of care (as documented) at patient's floor/unit and/or counseling patient: Coding Level of Care Code 04926 SUB INP/OBS CARE 2/35MIN Diagnoses Hematuria R31.9 Acute blood loss anemia D62 CKD (chronic kidney disease) N18.9 Hypertension I10 Hypothyroidism E03.9
[2022-10-13] MEDS: PHENAZOPYRIDINE HCL 200 MG TAB PO PRN ×2 (13:07→21:52)
[2022-10-13] MEDS: ZOLPIDEM TARTRATE 10 MG TAB PO SCH (21:53)
[2022-10-13] MEDS: TAMSULOSIN HCL 0.4 MG CAP PO SCH (21:53)
[2022-10-14] MEDS: LEVOTHYROXINE SODIUM 88 MCG TABLET PO SCH (05:46)
[2022-10-14 06:29] LABS: Mean Corpuscular Hemoglobin 27.9 pg (25.0-34.0); Mean Corpuscular Volume 89.8 fL (80.0-100.0); Mean Platelet Volume 9.7 fL (9.4-12.4); Platelet Count 236 K/uL (130-400); RDW Coefficient of Variation 15.9 % (11.5-14.5); RDW Standard Deviation 52.2 fL (36.4-46.3); Red Blood Count 3.23 M/uL (4.20-5.40); White Blood Count 6.89 K/ul (4.8-10.8)
[2022-10-14 06:41] LABS: BUN Creatinine Ratio 17.5 (10-20); Calcium 9.3 mg/dl (8.6-10.3); Creatinine Clr Calc Pharmacy 20.1 ml/min; Est GFR (African American) 20.8 ml/min; Est GFR (Non-African American) 17.9 ml/min; Potassium 4.8 mmol/L (3.5-5.1)
[2022-10-14] MEDS: ATENOLOL 50 MG TABLET PO SCH (08:34)
[2022-10-14] MEDS: DOCUSATE SODIUM 100 MG CAP PO SCH (08:35)
[2022-10-14] MEDS: PHENAZOPYRIDINE HCL 200 MG TAB PO PRN (08:36)
--- NOTE | 2022-10-14 11:41 | Urology Progress Note ---
Date of Service October 14, 2022 Assessment & Plan (1) Hematuria: (2) S/P cystoscopy with ureteral stent placement: Plan 82yo/F who is s/p recent urological procedure admitted with gross hematuria. CT abdomen pelvis on arrival demonstrated bilateral ureteral stents in appropriate position with mild bilateral hydroureteronephrosis. - Afebrile, hemodynamically stable. - Labs reviewed - WBC 6.89, creatinine 2.29-2.40 today, hemoglobin 9. - Urine culture prelim gram positive cocci, follow culture. - Hematuria has cleared. Borjas draining orange colored urine without clot or debris. Continue to monitor. - Ok to hand irrigate catheter as needed for clots, retention, suprapubic pain. - Plan to maintain borjas catheter on discharge. Will remove next week in office. - Continue supportive care. - Anticoagulation on hold. OK to resume from standpoint. - Plan to follow-up with urology outpatient next week (10/19) for stent and catheter removal. - Urology will sign-off. Please contact us with any further questions, concerns, or changes in patient status. Admission and Anticipated Discharge Date Admission Date: October 11, 2022 Subjective Patient examined at bedside this AM. Awake, resting in bed on arrival. No acute distress. Borjas draining orange colored urine, no clots or debris noted. She does report occasional bladder spasms. Denies abdominal, flank, suprapubic pain at present. Denies fevers, chills, nausea, vomiting. Review of Systems Constitutional: as per Subjective / HPI Gastrointestinal: as per Subjective / HPI Genitourinary: as per Subjective / HPI Physical Exam Constitutional: well developed and well nourished; no acute distress Respiratory: normal respiratory effort; no respiratory distress and no labored breathing Neurologic: moves all extremities and awake Psychiatric: A+Ox3, euthymic affect Genitourinary: Borjas intact, draining orange colored urine Results & Data Vital Signs (Past 12 Hours) Vital Signs Temp Pulse Resp BP Pulse Ox O2 Del Method 10/14/22 07:00 36.5 C 47 L 18 111/69 95 Room Air PG Care Time/CCT Total # of Minutes Spent Total Time Spent with Patient: Total time spent is greater than 50% in coordination of care (as documented) at patient's floor/unit and/or counseling patient: Coding Level of Care Code 20646 SUB INP/OBS CARE 2/35MIN Diagnoses Hematuria R31.9 S/P cystoscopy with ureteral stent placement Z96.0
--- NOTE | 2022-10-14 12:10 | Discharge Summary ---
Date of Service October 14, 2022 Admission HPI Per Admitting Provider Rossy French is an 82 year old female who presents to the ER with gross hematuria from her borjas catheter and passing clots. She underwent bilateral ureteral stent placement on 10/04 for nephrolithiasis. She was doing ok until 10/08 when she started having hematuria. She was off Xarelto for 2 days prior to surgery and placed back on it the day after surgery. Had previous hematuria but nothing like this. She went to [facility] ER last night and borjas catheter was placed and she was discharged from the ER with advice to come here were her urologist is if it continues. Last dose of Xarelto was yesterday morning. With regards to the anemia PCP notes she usually runs around 9. She denies any worsening dizziness over the last week, no chest pain or shortness of breath. She is fatigued but also notes she did not sleep last night due to being in the ER. Urology saw the patient in the ER and recommended hand irrigation of the borjas as needed and admit patient to medicine service. Principal Diagnosis Gross hematuria, acute blood loss anemia Discharge Exam General-alert and oriented x3, no fevers, no chills HEENT-head atraumatic and normocephalic, pupils equal and reactive to light, extraocular muscles intact Neck-no lymphadenopathy or thyromegaly, trachea midline Chest-clear to auscultation percussion. No rales, wheezing or rhonchi Cardiac-regular rate and rhythm, normal S1 and S2 Abdomen-normal bowel sounds, nontender, no hepatosplenomegaly GUFoley catheter in place with resolution of hematuria Extremities-no cyanosis, clubbing, or edema Neuro-cranial nerves II through XII intact, motor and sensory function within normal limits, strength symmetrical , no focal deficits Psych-normal affect, normal mood Discharge Data Allergies Allergy/AdvReac Type Severity Reaction Status Date / Time Sulfa (Sulfonamide Allergy Mild Rash Verified 10/11/22 16:29 Antibiotics) Consultations 10/11/22 16:12 Consult Urology Stat ED Decision to Admit Stat Ordered Studies 10/11/22 12:56 CT abd pelvis wo con Stat Hospital Course (1) Hematuria: Secondary to recent bilateral ureteral stent placement with Xarelto. Urology consultation appreciated. Xarelto has been discontinued. Borjas catheter remains in place and the urine is actually orange-colored from the Pyridium. No evidence of hematuria (2) Acute blood loss anemia: Hemoglobin improved after blood transfusion given on October 12. Hemoglobin is stable now at 9.0. Hematuria has resolved. She is now off Xarelto. (3) CKD (chronic kidney disease): Stage III4. Stable. Monitor intake and output. Serial labs (4) Hypertension: Stable. Continue atenolol (5) Hypothyroidism: Stable. Continue levothyroxine Plan Home today, October 14, with Borjas catheter in place per urology recommendations. She will remain off of Xarelto until seen by her PCP Total Time Total Time Spent Total Time Spent (In Minutes): 45 minutes Discharge Plan Discharge Items Patient Disposition: Home - Self-Care Reason For Visit: GROSS HEMATURIA Discharge Diagnosis: Gross hematuria, acute blood loss anemia Activity: Resume your previous activity Non-emergency contact: Primary Care Provider and Urologist Call non-emergency contact if: you have any medication questions and your symptoms worsen Follow-up/Referrals: Finesse Chavez DO [Physician] - 10/19/22 10:00 am Luly Smtih PA-C [Primary Care Provider] - Diet: Regular and Heart Healthy Addtl Attending Provider Instructions: Borjas catheter will be removed in the urology office. Stop Xarelto Pending Studies at Discharge: No Stand-Alone Forms: My [facility] [employer], Smoking Cessation Medications and DC Order Prescriptions: Continued calcitriol 0.5 mcg capsule 0.5 mcg PO DAILY phenazopyridine 95 mg Tablet 95 mg PO TID PRN (Reason: pain) phenazopyridine [Pyridium] 200 mg tablet 200 mg PO Q8H PRN (Reason: pain) Qty: 10 0RF tamsulosin 0.4 mg capsule 0.4 mg PO HS Qty: 30 0RF cyanocobalamin (vitamin B-12) [Vitamin B-12] 1,000 mcg Tablet 1,000 mcg PO QAM levothyroxine 88 mcg Tablet 88 mcg PO QAM zolpidem [Ambien] 10 mg Tablet 10 mg PO QPM atenolol 50 mg Tablet 50 mg PO QAM cholecalciferol (vitamin D3) [Vitamin D3] 125 mcg (5,000 unit) Tablet 125 mcg PO QAM Probiotic Blend 2 billion cell-50 mg Capsule 1 cap PO HS Rx Instructions: give with meal/snack albuterol sulfate 90 mcg/actuation Hfa Aerosol Inhaler 2 puff INHALATION Q6H PRN (Reason: Cough) acetaminophen 500 mg Tablet 1,000 mg PO Q6H PRN (Reason: Pain) Discontinued Xarelto 15 mg Tablet 15 mg PO QPM Rx Instructions: must administer with evening meal Discharge Orders: Discharge Order (Routine); Ordered 10/14/22 Ordered By: Daryl Moy Admission Data Admit Date/Time: 10/11/22 16:52 Attending Provider: Daryl Moy Admit Provider: Tristan Hardwick Primary Care Provider: Luly Smith Other Providers: Finesse Chavez ; Tristan Hardwick Coding Level of Care Code 91095 INP/OBS DISCH >30 MIN Diagnoses Hematuria R31.9 Acute blood loss anemia D62 CKD (chronic kidney disease) N18.9 Hypertension I10 Hypothyroidism E03.9
--- NOTE | 2022-10-15 15:08 | Coding Query ---
CODING QUERY To promote full compliance with coding requirements relating to patient care, provider participation is requested in all cases of registered phlebotomist part time uncertainty. Please assist us with the question(s) below: Coding Question(s): Gross Hematuria is documented in the record. The Urology Consultation on 10/11 documents, "Hematuria in the setting of bilateral ureteral stents and anticoagulation", and the Discharge Summary documents, "Hematuria: Secondary to recent bilateral ureteral stent placement with Xarelto". Please specify below, in your clinical opinion, regarding the cause(s) of Gross Hematuria during this admission: ( ) Gross Hematuria is likely a complication of the ureteral stents ( ) Gross Hematuria is likely postprocedural bleeding - postprocedural complication of bleeding (X ) Gross Hematuria is likely due to hemorrhagic condition caused by Anticoagulation/Xarelto ( ) Gross Hematuria is likely due to Other: Please specify, and please specify if it is a complication related to procedure or ureteral stents, or not: ( ) Gross Hematuria is from Unknown likely cause Physician's Response(s): Thank you Sailaja Hartmann Principal Diagnosis: "that condition established after study, to be chiefly responsible for occasioning the admission of the patient to the hospital for care." Co-Existing Principal Diagnosis: "when two or more diagnoses equally meet the criteria for principal diagnosis as determined by the circumstances of admission, diagnostic work up, and/or therapy provided, and the Alphabetic Index, Tabular List, or another coding guideline does not provide sequencing direction, any one of the diagnoses may be sequenced first." "When the physician has documented what appears to be a current diagnosis in the body of the record, but has not included the diagnosis in the final diagnostic statement, the physician should be asked whether the diagnosis should be added." (Source Coding Clinic 2 QTR90. p3-4) PATO
== END 2022-10-14 13:45 | disposition home or self-care (01) | DRG 813 ==
LOC: ED 11:50 → EDINP 16:52 → SUATTDRO 16:52 → 3E 19:50